=== PATIENT | female | born 1990 | race Caucasian/White ===

== ENCOUNTER 2017-06-28 15:02 | Emergency (ER) | payer MEDICAID ==
[2017-06-28 18:02] LABS: BASOPHIL % 0.7 % (0-2)
[2017-06-28 18:05] LABS: PLATELET COUNT 218 x10^3mcL (130-400)
[2017-06-28 18:09] LABS: CALCIUM 8.7 mg/dL (8.5-10.1); CARBON DIOXIDE 29.5 mmol/L (21-32); CHLORIDE SERUM 107 mmol/L (98-107); CREATININE SERUM 0.5 mg/dL (0.6-1.0); GFR1 > 60 mL/min; GLUCOSE SERUM 90 mg/dL (74-106); POTASSIUM SERUM 4.1 mmol/L (3.5-5.1); SODIUM SERUM 141 mmol/L (136-145)
[2017-06-28 18:11] LABS: ALBUMIN 3.7 g/dL (3.4-5.0); ALKALINE PHOSPHATASE 50 U/L (46-116); ALT/SGPT 16 U/L (14-59); AST/SGOT 14 U/L (15-37); BILIRUBIN TOTAL 0.17 mg/dL (0.20-1.00); CHOLESTEROL 140 mg/dL (<200); LIPASE 184 IU/L (73-393); TOTAL PROTEIN, SERUM 7.6 g/dL (6.4-8.2); TRIGLYCERIDES 111 mg/dL (<150)
[2017-06-28 18:15] LABS: CHOLESTEROL/HDL RATIO 2.3; HDL CHOLESTEROL 61 mg/dL (40-60)
[2017-06-28 18:20] LABS: RED CELL DISTRIBUTION WIDTH 20.3 % (11.5-14.5)
[2017-06-28 18:22] LABS: UA SPECIFIC GRAVITY 1.015 (1.005-1.035)
[2017-06-28 18:23] LABS: microscopic required? YES; urine erythrocyte TRACE (NEGATIVE)
[2017-06-28 18:24] LABS: T3 TOTAL 0.9 ng/mL
[2017-06-28 18:34] LABS: FREE T4 0.88 ng/dL (0.76-1.46); FREE THYROXINE INDEX 2.8 ug/dL (1.4-4.5); T4(THYROXINE) 7.8 ug/dL (4.7-13.3)
[2017-06-28 18:53] VITALS: BP 121/66
[2017-06-28 18:57] LABS: ovalocyte/elliptocyte 2+; rbc morphology (normal/abnorm) ABNORMAL (NORMAL); tear drop cell (dacryocyte) 1+
== END 2017-06-28 18:53 | disposition home or self-care (01) ==
LOC: ED 15:02
PROVIDERS: Specialist
DX: R07.89 Other chest pain (principal); D64.9 Anemia, unspecified
CPT/HCPCS: 83880; 84439; J1885; Q0092

== ENCOUNTER 2017-10-25 16:25 | Emergency (ER) | payer MEDICAID ==
[~2017-10-25] VITALS: Ht 157.5 cm; Wt 63.5 kg
[2017-10-25 17:11] VITALS: Ht 157.5 cm; Wt 63.5 kg
[2017-10-25 21:48] LABS: UA SPECIFIC GRAVITY 1.025 (1.005-1.035); microscopic required? YES; urine erythrocyte NEGATIVE (NEGATIVE)
[2017-10-25 22:05] LABS: CARBON DIOXIDE 27.4 mmol/L (21-32); CHLORIDE SERUM 104 mmol/L (98-107); CREATININE SERUM 0.5 mg/dL (0.6-1.0); GFR1 > 60 mL/min; GLUCOSE SERUM 90 mg/dL (74-106); POTASSIUM SERUM 4.2 mmol/L (3.5-5.1); SODIUM SERUM 140 mmol/L (136-145)
[2017-10-25 22:49] VITALS: BP 105/60
== END 2017-10-25 22:49 | disposition home or self-care (01) ==
LOC: ED 16:25
PROVIDERS: Emergency Medicine
DX: N39.0 Urinary tract infection, site not specified (principal)
CPT/HCPCS: 36415; J1885

== ENCOUNTER 2018-02-11 15:24 | Emergency (ER) | payer MEDICAID ==
[~2018-02-11] VITALS: Ht 157.5 cm; Wt 61.2 kg
[2018-02-11 15:30] VITALS: Ht 157.5 cm; Wt 61.2 kg
[2018-02-11 16:10] VITALS: BP 114/76
== END 2018-02-11 16:10 | disposition home or self-care (01) ==
LOC: ED 15:24
DX: R19.7 Diarrhea, unspecified (principal); R11.10 Vomiting, unspecified; R10.9 Unspecified abdominal pain

== ENCOUNTER 2019-10-31 19:20 | Emergency (ER) | payer MEDICAID ==
[~2019-10-31] VITALS: Ht 157.5 cm; Wt 64.0 kg
[2019-10-31 19:23] VITALS: Ht 157.5 cm; Wt 64.0 kg
[2019-10-31 19:56] VITALS: BP 138/67
== END 2019-10-31 19:56 | disposition home or self-care (01) ==
LOC: ED 19:20
DX: J11.1 Influenza due to unidentified influenza virus with other respiratory manifestations (principal)